=== PATIENT | female | born 1945 | race Caucasian/White ===

== ENCOUNTER 2018-03-07 10:16 | Outpatient (CLI) | payer MEDICARE ==
[2018-03-07] MEDS ORDERED: ISOVUE-370 76%-LOCM 1 ML ONE (11:38)
== END 2018-03-07 10:17 | disposition home or self-care (01) ==
LOC: BICCT 10:16
PROVIDERS: ATTEND General Practice
DX: R19.04 Left lower quadrant abdominal swelling, mass and lump (principal); K46.9 Unspecified abdominal hernia without obstruction or gangrene; I70.90 Unspecified atherosclerosis
CPT/HCPCS: 74177

== ENCOUNTER 2018-05-06 12:05 | Outpatient (CLI) | payer MEDICARE ==
[2018-05-06 13:08] LABS: #Basophils 0.1 thou/uL (0.0-0.2); #Eosinphils 0.5 thou/uL (0.0-0.7); #Lymphocytes 2.3 thou/uL (1.20-3.40); #Monocytes 0.7 thou/uL (0.11-0.59); #Neutrophils 5.1 thou/uL (1.40-6.50); %Basophils 0.9 % (0.0-1.0); %Eosinophils 5.5 % (0.0-10.0); %Lymphocytes 26.3 % (21.0-51.0); %Monocytes 8.2 % (0.0-10.0); %Neutrophils 59.1 % (42.0-75.0); Hemoglobin 14.4 g/dL (12.0-16.0); Mean Corpuscular HGB CONC 33.4 g/dL (32.0-36.0); Mean Corpuscular Hemoglobin 28.6 pg (27.0-31.0); Mean Corpuscular Volume 85.8 fl (81.0-99.0); Mean Platelet Volume 10.1 fL (7.4-10.4); Platelet Count 196 thou/uL (130-400); RBC Distribution Width 13.2 % (11.5-14.5); Red Blood Cell (RBC) Count 5.04 mill/uL (4.20-5.40); White Blood Cell (WBC) Count 8.7 thou/uL (4.8-10.8)
[2018-05-06 13:29] LABS: Anion Gap 13 mmol/L (10-20); BUN (Urea Nitrogen) 19 mg/dL (9.8-20.1); Calc. Creatinine Clearance 0 mL/min (70-130); Calcium 9.3 mg/dL (7.8-10.44); Carbon Dioxide 23 mmol/L (23-31); Chloride 108 mmol/L (98-107); Estimated GFR-MDRD 67; Glucose 92 mg/dL (83-110); Potassium 4.1 mmol/L (3.5-5.1); Sodium 140 mmol/L (136-145)
== END 2018-05-06 12:06 | disposition home or self-care (01) ==
LOC: LABBT 12:05
PROVIDERS: ATTEND Surgery
DX: Z01.812 Encounter for preprocedural laboratory examination (principal); K43.2 Incisional hernia without obstruction or gangrene
CPT/HCPCS: 80048; 85025

== ENCOUNTER 2018-05-07 06:06 | Day surgery (SDC) | payer MEDICARE ==
[2018-05-06 12:17] VITALS: BMI 38.6
[2018-05-07] MEDS ORDERED: Bupivacaine/Epinephrine 0.25% 30 ML VIAL ONE (06:34)
[2018-05-07] MEDS ORDERED: Fentanyl 250 MCG/5 ML VIAL ONE (06:41)
[2018-05-07] MEDS ORDERED: CEFAZOLIN/Water 2 GM/20 ML SYRINGE ONE (06:43)
[2018-05-07] MEDS ORDERED: SUGAMMADEX SODIUM 500 MG/5 ML VIAL ONE (09:32)
[2018-05-07] MEDS ORDERED: HYDROmorphone 0.5 MG/0.5 ML SYRINGE ONE ×3 (10:11→10:41)
[2018-05-07] MEDS ORDERED: Promethazine HCl 25 MG/ML VIAL ONE (10:38)
[2018-05-07] MEDS ORDERED: Morphine 4 MG/ML VIAL ONE (10:38)
[2018-05-07] MEDS ORDERED: PROPOFOL 200 MG/20 ML VIAL ONE (13:22)
[2018-05-07] MEDS ORDERED: Lidocaine 1% PF 5 ML VIAL ONE (13:22)
[2018-05-07] MEDS ORDERED: ePHEDrine/0.9% NaCl/PF SYRINGE 50 mg/10 ml ONE (13:22)
[2018-05-07] MEDS ORDERED: Ondansetron HCl/PF 4 MG/2 ML Vial ONE (13:22)
[2018-05-07] MEDS ORDERED: Glycopyrrolate 0.2 MG/ML 5 ML SYRINGE ONE (13:22)
[2018-05-07] MEDS ORDERED: Metoclopramide HCl 10 MG/2 ML VIAL ONE (13:22)
--- NOTE | 2018-05-08 15:05 | OP ---
DATE OF PROCEDURE: 05/07/2018 PREOPERATIVE DIAGNOSIS: Incisional hernia. POSTOPERATIVE DIAGNOSIS: Incisional hernia. PROCEDURE: Da [place] laparoscopic incisional hernia repair with mesh 10 x [address] TECHNIQUE: The patient was taken to the operating room and placed supine on operating room table. A fter general anesthetic was obtained, a Garcia was placed. The abdomen is prepped and draped in a kym rile fashion. Left subcostal 5-mm Optiview trocar was placed in the usual fashion and high flow pneu moperitoneum was obtained. Left and right midabdominal 8 mm robot ports were placed. The 5 mm port is switched out to an 11 mm balloon [employer] trocar. The robot was brought in through the lef t from the left foot in a parallel to bed fashion. All ports were docked to the robot. The patient had a fairly large lower abdominal midline incisional hernia. The peritoneum and all adhesions were taken down using sharp dissection. The fascial defects closed using running #1 V-Loc. A 10 x 14 cm mesh was brought in sterile field and the nonadherent side was marked, it is rolled and placed in the abdominal cavity. The needle from the V-Loc is used to hold it up and center it over the defect shanta t has been closed. 3-0 Stratafix was used to sew the mesh peripherally to the posterior fascia circu mferentially, this took three 3-0 Stratafix. All needles were removed from the abdomen and accounted for. There was no injury to any intraabdominal structures. There is no evidence of bleeding. The exposed mesh is placed posterior against the abdominal wall, but nonadherent is placed against the ab dominal viscera. All port sites were infiltrated using local anesthetic. All ports are removed unde r camera visualization. The pneumoperitoneum was let down. All incisions were irrigated and closed using 4-0 Monocryl and Dermabond. The patient en route to recovery in stable condition. All instrum ent counts, needle counts, lap counts were correct.
== END 2018-05-07 13:07 | disposition home or self-care (01) ==
LOC: SDC 06:06
PROVIDERS: ATTEND Surgery
PROC: 0WUF4JZ Supplement Abdominal Wall with Synthetic Substitute, Percutaneous Endoscopic Approach (ICD-10-PCS; principal; 2018-05-07)
DX: K43.2 Incisional hernia without obstruction or gangrene (principal); Z91.040 Latex allergy status
CPT/HCPCS: 49654; 93005; 96374 ×2; C1781; 93010; J1170; J2001; J2270; J2405; J2550; J2704; J2765; J3010

== ENCOUNTER 2020-10-29 10:49 | Inpatient (IN) | payer MEDICARE ==
[2020-10-29 12:02] LABS: #Eosinphils 0.1 thou/uL (0.0-0.7); #Lymphocytes 1.1 thou/uL (1.20-3.40); #Monocytes 0.6 thou/uL (0.11-0.59); #Neutrophils 6.3 thou/uL (1.40-6.50); %Basophils 0.4 % (0.0-1.0); %Eosinophils 1.3 % (0.0-10.0); %Lymphocytes 13.1 % (21.0-51.0); %Monocytes 7.3 % (0.0-10.0); %Neutrophils 77.9 % (42.0-75.0); Mean Corpuscular HGB CONC 32.4 g/dL (32.0-36.0); Mean Corpuscular Hemoglobin 28.9 pg (27.0-31.0); Mean Corpuscular Volume 89.1 fL (78.0-98.0); Platelet Count 238 thou/uL (130-400); White Blood Cell (WBC) Count 8.1 thou/uL (4.8-10.8)
[2020-10-29 12:24] LABS: ALT (SGPT) 356 U/L (8-55); AST (SGOT) 334 U/L (5-34); Albumin 3.7 g/dL (3.4-4.8); Alkaline Phosphatase 364 U/L (40-110); Anion Gap 17 mmol/L (10-20); BUN (Urea Nitrogen) 20 mg/dL (9.8-20.1); Bilirubin, Total 4.8 mg/dL (0.2-1.2); Calc. Creatinine Clearance 0 mL/min (70-130); Calcium 9.5 mg/dL (7.8-10.44); Carbon Dioxide 24 mmol/L (23-31); Chloride 104 mmol/L (98-107); Globulin 3.9 g/dL (2.4-3.5); Glucose 106 mg/dL (83-110); Lipase 28 U/L (8-78); Protein, Total 7.6 g/dL (6.0-8.3); Sodium 141 mmol/L (136-145)
[2020-10-29] MEDS ORDERED: Iopamidol-370 76% 500 ML 1 ML ONE (13:22)
[2020-10-29] MEDS ORDERED: Ondansetron PF 4 MG/2 ML Vial ONE (15:03)
[2020-10-29] MEDS ORDERED: Sucralfate 1 GM/10 ML UDCUP ONE (15:04)
--- NOTE | 2020-10-29 15:15 | CT ---
CT OF THE ABDOMEN AND PELVIS WITH IV CONTRAST INDICATION: 74-year-old female with history of vomiting COMPARISON: Prior exam dated March 07, 2018 FINDINGS: ABDOMEN: Lung bases: Clear Liver: There is prominent intrahepatic biliary ductal dilatation. There is a stable 1.3 center left h epatic lobe cyst. Gallbladder: Surgically absent. The common bile duct is dilated measuring 1.7 cm. There is radiopaqu e debris within the distal common bile duct likely related to sludge and small stones on image 40 of series 2. Pancreas: There is very mild dilatation of the main pancreatic duct. There is no overt CT evidence of acute pancreatitis. Adrenal glands: Normal. Spleen: Calcified granuloma Kidneys and ureters: There are multiple bilateral peripelvic cysts affecting both kidneys. No definit e solid renal lesion or hydronephrosis is evident. Vasculature: There are moderate vascular calcifications seen involving the visualized vasculature. Lymph nodes:No lymphadenopathy. Free fluid in abdomen:No free fluid is evident. PELVIS: Small and large bowel: There is colonic diverticulosis without evidence of active diverticulitis. Sma ll bowel is of normal caliber. Visualized aspects of the stomach appear within normal limits. There is a small fat-containing umbilicus hernia. Appendix:Not definitely seen Bladder: Partially visualized due to respiratory artifact from the patient's bilateral total hip arth roplasties. Rectal and perirectal soft tissues:Normal. Reproductive structures: Surgically absent Free fluid in pelvis: No free fluid is evident. Lymphadenopathy pelvis: No lymphadenopathy is evident. Osseous structures: No acute osseous abnormality. No destructive osteolytic or osteoblastic lesion i s identified. There is scattered degenerative and osteoarthritic changes. Soft tissues:Normal. IMPRESSION: 1. Prominent intrahepatic and extrahepatic biliary ductal dilatation with gallbladder sludge and smal l stones seen involving the distal common bile duct near the ampulla. There is also very mild dilatation of the main pancreatic duct. There is no overt CT evidence to suggest presence of acute pa ncreatitis. Gastroenterology consultation is recommended. 2. Cholecystectomy. 3. Findings of prior granulomatous disease. 4. Bilateral peripelvic renal cysts. Left hepatic lobe cyst. 5. Colonic diverticulosis.
[2020-10-29 15:44] LABS: HBCM Index 0.08 S/CO (0-0.79); HBSAg Index 0.18 S/CO (0-0.99); Hep A IgM AB Non-Reactive (NonReactive); Hep A IgM S/CO 0.37 S/CO (0-0.79); Hep B Surf Ag Non-Reactive S/CO (NonReactive); Hep C IgG Ab Non-Reactive (NonReactive); Hep C Index 0.09 S/CO (0-0.79); Hepatitis B Core IgM Abs Non-Reactive (NonReactive)
--- NOTE | 2020-10-29 16:01 | ULT ---
RIGHT UPPER QUADRANT ULTRASOUND CLINICAL HISTORY: History of vomiting. COMPARISON: CT the abdomen and pelvis dated October 29, 2020 at 3:03 PM FINDINGS: Overlying bowel gas and patient body habitus heavily limit image detail. Liver:There is intrahepatic biliary ductal dilatation. No focal hepatic lesion is evident. Intrahepatic bile ducts: There is intrahepatic biliary duct dilatation.; Common bile duct: Recorded by the security technician as 2.5 mm; however, the bile duct is grossly dilated o n the CT evaluation. Common bile but is not well seen on the current exam.. Gallbladder: Surgically absent Tomas's sign:Not reported Main portal vein:Patent with hepatopedal flow. Pancreas:Obscured Right kidney: Right kidney measures 11.1 x 4.6 x 5.1 cm. No focal renal lesion or hydronephrosis. Additional findings: None. IMPRESSION: Limited exam due to patient's body habitus and overlying bowel gas. Cholecystectomy. Intrahepatic biliary ductal dilatation. Common bile duct is grossly dilated on the CT evaluation but not well seen on the current ultrasound exam. Recommendations remain the same as per the CT evaluation.
[2020-10-29 16:15] LABS: Bilirubin 1+ (Negative); Blood, Urine Trace (Negative); Clarity Clear (Clear); Glucose, Urine (Dipstick) Normal (Negative); Ketone, Urine 10 mg/dL (Negative); Leukocyte 500 Leu/uL (Negative); Nitrite 1+ (Negative); Protein, Urine (Dipstick) 10 mg/dL (Neg-Trace); WBC/HPF Greater than 50 HPF (0-3); pH, Urine 5.5 (5.0-9.0)
[2020-10-29 16:17] LABS: Specific Gravity, Urine 1.055 (1.002-1.036)
[2020-10-29 16:22] LABS: Bacteria/HPF 3+ HPF (None Seen)
[2020-10-29] MEDS ORDERED: Acetaminophen 325 MG TAB PO PRN (17:38)
[2020-10-29] MEDS ORDERED: cefTRIAXone\\ROCEPHIN 2 GM VIAL ONE (17:39)
[2020-10-29] MEDS ORDERED: Sodium Chloride 0.9% 100 ML ONE (17:40)
[2020-10-29] MEDS ORDERED: Melatonin 3 MG TAB PO PRN (17:48)
[2020-10-29] MEDS ORDERED: Ondansetron PF 4 MG/2 ML Vial IVP PRN (18:51)
--- NOTE | 2020-10-29 19:05 | CON ---
DATE OF CONSULTATION: 10/29/2020 REASON FOR CONSULTATION: Choledocholithiasis. CONSULTING PROVIDER: JOSHUA Mccormack HISTORY OF PRESENT ILLNESS: The patient is a 74-year-old female with past medical history of hypertension, osteoarthritis/degenerative joint disease, presenting with complaints of nausea, vomiting, and abdominal pain. She states that she was in her usual state of health until approximately 1 week ago when she began having increased nausea, vomiting, characterized as having 1 to 2 discrete episodes of nonbloody emesis per day that was worse with eating or drinking any particular foodstuffs (no specific food triggers) and vomiting within 30 minutes of ingestion. With this increased nausea and vomiting, it made it very difficult for her to maintain adequate nutrition and over the course of the next few days, she began to develop increased mid to lower back pain in addition to generalized abdominal discomfort over the last 3 days. However, in terms of her abdominal discomfort, it is not significantly increased in terms of severity. It is intermittent and occurs primarily only with the nausea and vomiting episodes. During the same time period, she endorsed having approximately one solid bowel movement every 2 to 3 days with increased straining in order to facilitate defecation. Otherwise, she endorsed subjective fevers, chills, an orange color to her urine, and possible yellowing of her skin. Otherwise, she denies any hematemesis, melena, hematochezia, dysphagia, odynophagia, diarrhea, or weight loss. With the increased nausea and vomiting, relative intolerance to p.o., we then prompted her to seek healthcare assistance at [facility] ER. While in the ER, she was noted to have significantly elevated LFTs in an obstructive-type pattern in addition to imaging findings consistent with choledocholithiasis. Ultimately, she will be admitted to the hospital for further evaluation and ERCP tomorrow. Of note, the patient was admitted to the hospital in 2011 with increased nausea, vomiting, abdominal pain at that time. She was ultimately diagnosed with acute cholecystitis with cholecystectomy performed at that time, but an ERCP was attempted on June 28, 2012, but unfortunately during the course of the procedure, the ampulla was unable to be cannulated. REVIEW OF SYSTEMS: A 10-category review of systems was obtained with all responses negative except for the pertinent positives as listed in HPI. PAST MEDICAL HISTORY: As per HPI. PAST SURGICAL HISTORY: Bilateral hip replacement, cholecystectomy, hysterectomy with oophorectomy. SOCIAL HISTORY: Denies any tobacco, alcohol, or illicit drug use. OUTPATIENT MEDICATIONS: Tylenol p.r.n. ALLERGIES: ADHESIVE TAPE. PHYSICAL EXAMINATION: VITAL SIGNS: Heart rate 74, blood pressure 191/65, respiratory rate 16, saturating 93% on room air. GENERAL: The patient was lying in bed, in no acute distress. Alert and oriented x4. HEENT: Normocephalic, atraumatic. Positive scleral icterus. NECK: Supple. No JVD noted. CARDIOVASCULAR: Regular rate and rhythm with no discernible murmurs, gallops, or rubs. RESPIRATORY: Clear to auscultation bilaterally with no discernible wheezes or rales. ABDOMEN: Normoactive bowel sounds. Soft, nontender, and nondistended. EXTREMITIES: No cyanosis, clubbing, or edema. LABORATORY DATA: CBC with a white blood cell count of 8.1, hemoglobin 15, hematocrit 46.3, platelets 238. Chemistry with a sodium of 141, potassium 4.0, chloride 104, CO2 of 24, BUN 20, creatinine 0.91, glucose 106, AST 334, ALT 356, alkaline phosphatase 364, total bilirubin 4.8, direct bilirubin 3.1, albumin 3.7, lipase 28. Urinalysis was consistent with a contaminated sample. Acute hepatitis panel was negative for hepatitis A, B, and C. IMAGING DATA: CT scan of the abdomen/pelvis was obtained on October 29, 2020, which showed prominent intrahepatic dilatation in addition to dilation of the common bile duct to 17 mm with debris in the distal common bile duct. Mild dilatation of the main pancreatic duct was also seen without evidence of pancreatitis. Multiple bilateral renal cysts were seen along with colonic diverticulosis without evidence of diverticulitis. A right upper quadrant ultrasound was also obtained on October 29, 2020, which showed intrahepatic biliary ductal dilatation with the common bile duct measured at 2.5 mm per the neon technician read, but the bile duct is grossly dilated on the CT scan. The gallbladder was noted to be surgically absent with normal flow through the main portal vein. ASSESSMENT AND PLAN: The patient is a 74-year-old female with past medical history of hypertension, osteoarthritis/degenerative joint disease, presenting with probable choledocholithiasis. Choledocholithiasis: The patient is presenting with acute onset of nausea, vomiting, lower back pain, and mild abdominal discomfort with elevated LFTs in an obstructive-type pattern and CT scan showing dilation of the common bile duct with debris in the distal common portion of it concerning for choledocholithiasis. On chart review, the patient was admitted to the hospital in June 2012 with similar symptoms (albeit more severe) with a cholecystectomy performed at that time. Endoscopic retrograde cholangiopancreatography with attempted, but cannulation of the ampulla could not be achieved and the patient had downtrending her enzymes over the next few days, raising the possibility of a passed gallstone within the common bile duct. At this time given the higher likelihood of choledocholithiasis, the patient will need broader spectrum antibiotics to cover gram negatives and anaerobes in addition to more emergent endoscopic retrograde cholangiopancreatography. RECOMMENDATIONS: 1. Would place the patient on a clear liquid diet tonight with plans make her n.p.o. at midnight in anticipation of ERCP tomorrow. 2. Would place the patient on Zosyn for broader coverage of prevention of ascending cholangitis. 3. Pain control per primary team. 4. Would pursue aggressive antiemetic therapy with Zofran 4 mg t.i.d. as needed. 5. Would avoid any anticoagulation in anticipation of the ERCP tomorrow. Further recommendations to follow ERCP. We will continue to follow. Please call with any questions. Job ID: [id number]
--- NOTE | 2020-10-29 19:17 | PDOC.HHP ---
Hospitalist HPI - History of Present Illness Nausea and vomiting x1 week History of Present Illness: 74F presents to the ED for evaluation of weakness, n/v and inability to hold down fluids or solid foods for the last week. She reports eating a lezama sandwich last before the nausea/vomiting started. She denies significant abdominal pain. She does report some mid back pain. She denies diarrhea, reports a BM every couple of days but decreased due to lack of nutrition. Denies melena, reports some subjective fever, chills at home. She was given Zofran in the ED which helped her nausea. She reports having her gallbladder removed in 2011. ED Course: Elevated LFTs with AST 334, ALT 356, Alk Phos, 364, bili 4.8. Acute hepatitis panel was negative. CT abdomen/pelvis shows dilitation of CBD with 17mm of debris and no evidence of pancreatitis. ED called GI income tax consultant student union consultant who asked for patient to be admitted and will consult for possible ERCP. Hospitalist ROS - Review of Systems Constitutional: reports: fever, chills Eyes: reports: other ENT: denies: ear pain, ear discharge, nose pain, nose discharge, nose congestion, mouth pain, mouth swelling, throat pain, throat swelling, other Respiratory: denies: cough, dry, shortness of breath, hemoptysis, SOB with excertion, pleuritic pain, sputum, wheezing, other Cardiovascular: denies: chest pain, palpitations, orthopnea, paroxysmal noc. dyspnea, edema, light headedness, other Gastrointestinal: reports: nausea, vomiting Genitourinary: reports: other Musculoskeletal: denies: neck pain, shoulder pain, arm pain, back pain, hand pain, leg pain, foot pain, other Skin: denies: rash, lesions, nikolai, bruising, other Neurological: reports: weakness (generalized due to n/v) - Medication Medications: Tylenol 500mg po q6h prn knee pain Hospitalist History - Past Medical History Cardiac: reports: no pertinent history Gastrointestinal: reports: Other Musculoskeletal: reports: Other (right knee pain, intermittent) - Past Surgical History Past Surgical History: reports: Cholecystectomy, Hernia Repair, Total Hip Replacement - Family History Family History: reports: hypertension - Social History Smoking Status: Unknown if ever smoked Alcohol: reports: None Drugs: reports: none Living Situation: With Family Activity level: independent ambulation - Exam General Appearance: awake alert Eye: scleral icterus ENT: normocephalic atraumatic, dry oral mucosa Neck: supple, no JVD Heart: RRR, normal peripheral pulses Respiratory: CTAB Gastrointestinal: soft, non-tender Extremities: no cyanosis Skin: normal turgor Neurological: cranial nerve grossly intact Musculoskeletal: normal tone Psychiatric: normal affect, A&O x 3 Hospitalist Results - Labs Result Diagrams: 10/29/20 11:44 10/29/20 11:44 Lab results: WBC 8.1 thou/uL (4.8-10.8) 10/29/20 11:44 Hgb 15.0 g/dL (12.0-16.0) 10/29/20 11:44 Hct 46.3 % (36.0-47.0) 10/29/20 11:44 MCV 89.1 fL (78.0-98.0) 10/29/20 11:44 Plt Count 238 thou/uL (130-400) 10/29/20 11:44 Neutrophils % 77.9 % (42.0-75.0) H 10/29/20 11:44 Sodium 141 mmol/L (136-145) 10/29/20 11:44 Potassium 4.0 mmol/L (3.5-5.1) 10/29/20 11:44 Chloride 104 mmol/L (98-107) 10/29/20 11:44 Carbon Dioxide 24 mmol/L (23-31) 10/29/20 11:44 BUN 20 mg/dL (9.8-20.1) 10/29/20 11:44 Creatinine 0.91 mg/dL (0.6-1.1) 10/29/20 11:44 Glucose 106 mg/dL (83-110) 10/29/20 11:44 Lactic Acid 1.3 mmol/L (0.5-2.2) 10/29/20 14:44 Calcium 9.5 mg/dL (7.8-10.44) 10/29/20 11:44 Total Bilirubin 4.8 mg/dL (0.2-1.2) H 10/29/20 11:44 AST 334 U/L (5-34) H 10/29/20 11:44 ALT 356 U/L (8-55) H 10/29/20 11:44 Alkaline Phosphatase 364 U/L (40-110) H 10/29/20 11:44 Serum Total Protein 7.6 g/dL (6.0-8.3) 10/29/20 11:44 Albumin 3.7 g/dL (3.4-4.8) 10/29/20 11:44 Lipase 28 U/L (8-78) 10/29/20 11:44 Urine Ketones 10 mg/dL (Negative) A 10/29/20 15:59 Urine Blood Trace (Negative) A 10/29/20 15:59 Urine Nitrite 1+ (Negative) A 10/29/20 15:59 Ur Leukocyte Esterase 500 Hugo/uL (Negative) A 10/29/20 15:59 Urine RBC 11-20 HPF (0-3) A 10/29/20 15:59 Urine WBC Greater than 50 HPF (0-3) A 10/29/20 15:59 Ur Squamous Epith Cells 11-20 HPF (0-3) A 10/29/20 15:59 Urine Bacteria 3+ HPF (None Seen) A 10/29/20 15:59 Hospitalist H&P A/P - Problem (1) Nausea & vomiting Code(s): R11.2 - NAUSEA WITH VOMITING, UNSPECIFIED Status: Acute Assessment and Plan: Zofran, IV fluids, NPO (2) Cholestatic jaundice Code(s): R17 - UNSPECIFIED JAUNDICE Status: Acute Assessment and Plan: GI consult, recheck labs in AM (3) Common bile duct (CBD) obstruction Code(s): K83.1 - OBSTRUCTION OF BILE DUCT Status: Acute Assessment and Plan: See above (4) UTI (urinary tract infection) Status: Acute Assessment and Plan: UC ordered, Rocephin in ED; changed per Dr. Montejo recommendation to Zosyn for cross coverage for cholangitis - Plan Plan: GI consult for possible ERCP in AM Zofran as needed for nausea/vomiting; Protonix IVP daily;Fentanyl as needed for pain meds UTI. Zosyn 3.375gm Q6h to cover UTI and prevention of cholangitis Lovenox for DVT prevention Case discussed with Dr. Matias
[2020-10-29] MEDS ORDERED: Fentanyl 100 MCG/2 ML VIAL SLOW IVP PRN (20:04)
[2020-10-29 20:06] VITALS: BMI 36.8
[2020-10-29] MEDS: Piperacillin/Tazobactam 3.375 GM in Sodium Chloride 0.9% 100 ML IVPB SCH (20:17)
[2020-10-29] MEDS: Sodium Chloride 0.9% 1,000 ML IV SCH (20:17)
[2020-10-30] MEDS: Piperacillin/Tazobactam 3.375 GM in Sodium Chloride 0.9% 100 ML IVPB SCH ×4 (03:13→20:40)
[2020-10-30 06:02] LABS: #Basophils 0.1 thou/uL (0.0-0.2); #Eosinphils 0.4 thou/uL (0.0-0.7); #Lymphocytes 2.2 thou/uL (1.20-3.40); #Monocytes 0.9 thou/uL (0.11-0.59); #Neutrophils 6.2 thou/uL (1.40-6.50); %Basophils 0.9 % (0.0-1.0); %Eosinophils 3.6 % (0.0-10.0); %Lymphocytes 22.9 % (21.0-51.0); %Neutrophils 63.6 % (42.0-75.0); Hemoglobin 14.8 g/dL (12.0-16.0); Mean Corpuscular HGB CONC 33.4 g/dL (32.0-36.0); Mean Platelet Volume 10.9 fL (7.4-10.4); Platelet Count 229 thou/uL (130-400); RBC Distribution Width 13.2 % (11.5-14.5); Red Blood Cell (RBC) Count 4.92 mill/uL (4.20-5.40); White Blood Cell (WBC) Count 9.8 thou/uL (4.8-10.8)
[2020-10-30] MEDS: Sodium Chloride 0.9% 1,000 ML IV SCH ×2 (06:05→20:42)
[2020-10-30 06:27] LABS: ALT (SGPT) 365 U/L (8-55); AST (SGOT) 276 U/L (5-34); Albumin 3.4 g/dL (3.4-4.8); Alkaline Phosphatase 319 U/L (40-110); Anion Gap 17 mmol/L (10-20); BUN (Urea Nitrogen) 18 mg/dL (9.8-20.1); Bilirubin, Total 2.4 mg/dL (0.2-1.2); Calc. Creatinine Clearance 76 mL/min (70-130); Calcium 8.9 mg/dL (7.8-10.44); Carbon Dioxide 23 mmol/L (23-31); Chloride 108 mmol/L (98-107); Globulin 3.6 g/dL (2.4-3.5); Glucose 88 mg/dL (83-110); Potassium 4.1 mmol/L (3.5-5.1); Sodium 144 mmol/L (136-145)
[2020-10-30 06:47] LABS: SARS-CoV-2 MS2 Positive; SARS-CoV-2 N Gene Negative; SARS-CoV-2 S Gene Negative; SARS-CoV-2 by NAA Not Detected (NotDetected); SARS-CoV-2 orf1ab Negative
[2020-10-30] MEDS ORDERED: Piperacillin/Tazobactam 3.375 GM VIAL ONE (08:44)
[2020-10-30] MEDS ORDERED: Enoxaparin Sodium 40 MG/0.4 ML SYRINGE SC SCH (09:00)
[2020-10-30] MEDS: Pantoprazole 40 MG VIAL IVP SCH (09:10)
[2020-10-30] MEDS ORDERED: Indomethacin 50 MG SUPP ONE (11:08)
[2020-10-30] MEDS ORDERED: Iothalamate Meglumine 60% 50 ML VIAL FS ONE (11:10)
[2020-10-30] MEDS ORDERED: Fentanyl 100 MCG/2 ML VIAL ONE (11:23)
[2020-10-30] MEDS ORDERED: SUGAMMADEX SODIUM 200 MG/2 ML VIAL ONE (11:23)
[2020-10-30] MEDS ORDERED: Ketorolac Tromethamine 30 MG/ML VIAL ONE (11:25)
[2020-10-30] MEDS ORDERED: Rocuronium Bromide 10 MG/ML (10ML VIAL) ONE (11:25)
[2020-10-30] MEDS ORDERED: Lidocaine 1% PF 5 ML VIAL ONE (11:25)
[2020-10-30] MEDS ORDERED: Dexamethasone 20 MG/5 ML VIAL ONE (11:25)
[2020-10-30] MEDS ORDERED: PROPOFOL 200 MG/20 ML VIAL ONE (11:25)
[2020-10-30] MEDS ORDERED: Ondansetron PF 4 MG/2 ML Vial ONE (11:25)
[2020-10-30] MEDS ORDERED: Promethazine HCl 25 MG/ML VIAL SLOW IVP PRN (12:06)
[2020-10-30] MEDS ORDERED: Ondansetron HCl/PF 4 MG/2 ML Vial IVP PRN (12:06)
[2020-10-30] MEDS ORDERED: Promethazine HCl 25 MG/ML VIAL IM PRN (12:06)
--- NOTE | 2020-10-30 13:43 | RAD ---
ERCP: 10/30/20 COMPARISON: CT abdomen/pelvis 10/28/20. HISTORY: Enlarged common bile duct and choledocholithiasis. FINDINGS/IMPRESSION: Multiple limited intraoperative fluoroscopic views from an ERCP were submitted for interpretation. T here is enlargement of the common bile duct. There are two apparent fulling defects within the common bile duct. These are not see on the last image. There is central intrahepatic biliary dilatation. POS: EAA
[2020-10-30] MEDS ORDERED: Promethazine HCl 25 MG/ML VIAL ONE (13:55)
--- NOTE | 2020-10-30 14:46 | PDOC.HOSPP ---
- Subjective Encounter Date: 10/30/20 Encounter Time: 09:30 Subjective: no abd pain or nausea, is npo for ercp today - Objective Vital Signs & Weight: Vital Signs (12 hours) Temp Pulse Resp BP Pulse Ox 10/30/20 08:00 94 L 10/30/20 07:32 98.2 F 60 18 175/74 H 94 L 10/30/20 03:55 97.9 F 58 L 18 137/73 93 L Weight Admit Weight 221 lb Weight 221 lb I&O: 10/29/20 10/30/20 10/31/20 06:59 06:59 06:59 Intake Total 800 Balance 800 Result Diagrams: 10/30/20 05:46 10/30/20 05:46 Hospitalist ROS - Medication Medications: Active Medications Generic Name Dose Route Start Last Admin Trade Name Freq PRN Reason Stop Dose Admin Sodium Chloride 1,000 mls @ 75 mls/hr 10/29/20 17:45 10/30/20 06:05 Normal Saline 0.9% IV Not Given .[id number] TOSHA Piperacillin Sod/Tazobactam 100 mls @ 200 mls/hr 10/29/20 21:00 10/30/20 09:11 Sod 3.375 gm/ Sodium Chloride IVPB Not Given 0300,0900,1500,2100 TOSHA Pantoprazole Sodium 40 mg 10/30/20 09:00 10/30/20 09:10 Pantoprazole 40 Mg Vial IVP 40 mg DAILY TOSHA Administration - Exam General Appearance: awake alert Eye: scleral icterus ENT: no oropharyngeal lesions, dry oral mucosa Neck: supple, no JVD Heart: RRR, no murmur Respiratory: no wheezes, no rales, no ronchi Gastrointestinal: soft, non-tender, non-distended, normal bowel sounds Extremities: no cyanosis, no edema Neurological: cranial nerve grossly intact, no focal deficits Psychiatric: normal affect, A&O x 3 Hosp A/P (1) Choledocholithiasis Code(s): K80.50 - CALCULUS OF BILE DUCT W/O CHOLANGITIS OR CHOLECYST W/O OBST Status: Acute (2) HTN (hypertension) Code(s): I10 - ESSENTIAL (PRIMARY) HYPERTENSION Status: Acute Qualifiers: Hypertension type: essential hypertension Qualified Code(s): I10 - Essential (primary) hypertension (3) Obesity (BMI 30-39.9) Code(s): E66.9 - OBESITY, UNSPECIFIED Status: Chronic (4) Cholestatic jaundice Code(s): R17 - UNSPECIFIED JAUNDICE Status: Acute (5) Nausea & vomiting Code(s): R11.2 - NAUSEA WITH VOMITING, UNSPECIFIED Status: Resolved Qualifiers: Vomiting type: unspecified - Plan for ercp today, has prior cholecystectomy empiric zosyn, iv fluids will add norvasc and low dose lopressor for now hemostable to mobilize as tolerated post procedure
[2020-10-30] MEDS ORDERED: Metoprolol Tartrate 25 MG TAB PO SCH (15:00)
[2020-10-30] MEDS ORDERED: Amlodipine 10 MG TAB PO SCH (15:00)
--- NOTE | 2020-10-30 15:34 | OP ---
DATE OF PROCEDURE: 10/30/2020 PROCEDURE PERFORMED: Endoscopic retrograde cholangiopancreatography with sphincterotomy and removal of biliary calculi. INDICATIONS FOR PROCEDURE: Choledocholithiasis, elevated LFTs. DESCRIPTION OF PROCEDURE: After the risks and benefits of the procedure were explained to the patient including risks of bleeding, infection, perforation, reactions to anesthesia, aspiration, post ERCP pancreatitis, and/or pain, informed consent was obtained. The patient was then taken to the endoscopy suite, where general anesthesia was administered followed by endotracheal tube intubation. Once the patient was adequately sedated and intubated, she was maneuvered into the prone position in anticipation of the ERCP. Once in adequate position and with proper placement of a fluoroscopy tube, the standard duodenoscope was introduced into the mouth with intubation of the esophagus, stomach, and proximal small intestines with the findings listed below. The patient tolerated the procedure well with no immediate perioperative complications. On conclusion of the procedure, all equipment was removed from the patient and she was transferred to PACU in satisfactory condition. EGD FINDINGS: Limited views were obtained during the EGD portion at the end of this examination, given the side-viewing aspect of the duodenoscope. Of the views obtained, normal-appearing mucosa was seen in the proximal, mid, and distal esophagus. Normal mucosa was also seen in the gastroesophageal junction, gastric cardia, fundus, body, greater curvature, and antrum. Normal-appearing mucosa was also seen in the duodenal bulb. However, 2 larger duodenal diverticula were seen in the second portion of the duodenum measuring approximately 2 to 3 cm in diameter with the ampulla of Vater located along the edge/lip of one of these diverticula. ERCP FINDINGS: The ampulla was identified with some difficulty as being inserted on to the edge/lip of one of the duodenal diverticula seen in the second portion of the duodenum. After successful identification, the ampulla was then successfully cannulated with a 5-mm Ultratome sphincterotome, at which point, a guidewire was then placed into the intrahepatic biliary tree. Using the guidewire, the sphincterotome was then advanced into the distal common bile duct with a cholangiogram performed at that time. The initial cholangiogram showed dilation of the proximal common bile duct/common hepatic duct to approximately 15 to 20 mm in diameter with multiple filling defects seen in the common hepatic/proximal common bile duct. The distal common bile duct was not able to be adequately visualized at least initially with lack of contrast flowing to that area. Given the presence of the multiple filling defects and stone debris seen on CT scan, a generous sphincterotomy was then performed with good hemostasis achieved (although some bleeding was noted during this portion of the procedure). Once the sphincterotomy was performed, the sphincterotome was then exchanged for a 12 to 15 mm biliary balloon, which was then successfully advanced into the extrahepatic biliary tree. Using successive balloon sweeps, a large amount of yellow stone debris/sludge was obtained from the distal common bile duct. Three additional filling defects were seen, that were translated into 3 yellow pigmented stones measuring approximately 5 mm, 10 mm, and 15 mm in size. After removal of all the stone debris and the large stones themselves, an occlusion cholangiogram was then performed with good filling of both the intrahepatic and extrahepatic biliary tree. The balloon was then deflated with good drainage of bile noted into the second portion of the duodenum. At that time, the procedure was terminated and all equipment was removed from the patient with transferring the patient to PACU in satisfactory condition. IMPRESSION: 1. Choledocholithiasis consisting of 3 large yellow pigmented stones in addition to a large amount of retained stone debris seen in both the common hepatic and distal common bile ducts; now successfully extracted via biliary balloon sweeps. 2. Significant dilation of the common hepatic duct to 15 to 20 mm in diameter. RECOMMENDATIONS: 1. Would monitor the patient in the postoperative setting for possible post ERCP pancreatitis. 2. Would start the patient on a full liquid diet and advance as tolerated. 3. Pain control per primary team. 4. Would continue IV antibiotics in the postoperative setting. 5. Would continue to trend the patient's LFTs tomorrow for evaluation of response to treatment. We will continue to follow. Please call with any questions. Job ID: [id number]
[2020-10-30] MEDS ORDERED: cefTRIAXone\\ROCEPHIN 1 GM in Sodium Chloride 0.9% 100 ML IVPB SCH (18:00)
[2020-10-30] MEDS: Metoprolol Tartrate 25 MG TAB PO SCH (20:38)
[2020-10-31] MEDS: Piperacillin/Tazobactam 3.375 GM in Sodium Chloride 0.9% 100 ML IVPB SCH ×4 (02:54→19:39)
[2020-10-31] MEDS: Amlodipine 10 MG TAB PO SCH (07:58)
[2020-10-31] MEDS: Pantoprazole 40 MG VIAL IVP SCH (07:59)
[2020-10-31] MEDS: Metoprolol Tartrate 25 MG TAB PO SCH (10:17)
[2020-10-31 10:49] LABS: #Basophils 0.1 thou/uL (0.0-0.2); #Eosinphils 0.5 thou/uL (0.0-0.7); #Lymphocytes 1.1 thou/uL (1.20-3.40); #Monocytes 0.5 thou/uL (0.11-0.59); %Basophils 1.4 % (0.0-1.0); %Eosinophils 7.9 % (0.0-10.0); %Lymphocytes 17.4 % (21.0-51.0); %Monocytes 8.3 % (0.0-10.0); %Neutrophils 65.1 % (42.0-75.0); Hemoglobin 12.6 g/dL (12.0-16.0); Mean Corpuscular HGB CONC 31.7 g/dL (32.0-36.0); Mean Corpuscular Hemoglobin 28.6 pg (27.0-31.0); Mean Corpuscular Volume 89.9 fL (78.0-98.0); Platelet Count 203 thou/uL (130-400); RBC Distribution Width 13.1 % (11.5-14.5); Red Blood Cell (RBC) Count 4.41 mill/uL (4.20-5.40); White Blood Cell (WBC) Count 6.1 thou/uL (4.8-10.8)
[2020-10-31 11:07] LABS: ALT (SGPT) 240 U/L (8-55); AST (SGOT) 128 U/L (5-34); Albumin 2.8 g/dL (3.4-4.8); Alkaline Phosphatase 210 U/L (40-110); Anion Gap 15 mmol/L (10-20); BUN (Urea Nitrogen) 15 mg/dL (9.8-20.1); Bilirubin, Total 1.5 mg/dL (0.2-1.2); Calc. Creatinine Clearance 71 mL/min (70-130); Calcium 8.1 mg/dL (7.8-10.44); Carbon Dioxide 22 mmol/L (23-31); Chloride 111 mmol/L (98-107); Glucose 147 mg/dL (83-110); Potassium 3.4 mmol/L (3.5-5.1); Protein, Total 5.8 g/dL (6.0-8.3); Sodium 145 mmol/L (136-145)
[2020-10-31] MEDS: Sodium Chloride 0.9% 1,000 ML IV SCH (12:17)
--- NOTE | 2020-10-31 12:49 | PDOC.HOSPP ---
- Subjective Encounter Date: 10/31/20 Encounter Time: 10:15 Subjective: no abd pain or nausea had one episode of black stool this am is tolerating liq diet - Objective Vital Signs & Weight: Vital Signs (12 hours) Temp Pulse Resp BP BP Pulse Ox 10/31/20 12:00 97.9 F 68 16 112/62 97 10/31/20 08:00 95 10/31/20 07:58 80 137/77 Weight Admit Weight 221 lb Weight 221 lb I&O: 10/30/20 10/31/20 11/01/20 06:59 06:59 06:59 Intake Total 800 Balance 800 Result Diagrams: 10/31/20 10:09 10/31/20 10:09 Hospitalist ROS - Medication Medications: Active Medications Generic Name Dose Route Start Last Admin Trade Name Freq PRN Reason Stop Dose Admin Amlodipine Besylate 10 mg 10/31/20 09:00 10/31/20 07:58 Amlodipine 10 Mg Tab PO 10 mg DAILY TOSHA Administration Sodium Chloride 1,000 mls @ 75 mls/hr 10/29/20 17:45 10/31/20 12:17 Normal Saline 0.9% IV 1,000 mls .[id number] TOSHA Administration Piperacillin Sod/Tazobactam 100 mls @ 200 mls/hr 10/29/20 21:00 10/31/20 08:00 Sod 3.375 gm/ Sodium Chloride IVPB 100 mls 0300,0900,1500,2100 TOSHA Administration Pantoprazole Sodium 40 mg 10/31/20 09:00 10/31/20 08:13 Pantoprazole 40 Mg Tab PO Not Given DAILY TOSHA - Exam General Appearance: awake alert Eye: PERRL, anicteric sclera ENT: no oropharyngeal lesions, moist mucosa Neck: supple, no JVD Heart: RRR, no murmur Respiratory: no wheezes, no rales Gastrointestinal: soft, non-tender, non-distended, normal bowel sounds Extremities: no cyanosis, no edema Neurological: cranial nerve grossly intact, no focal deficits Psychiatric: normal affect, A&O x 3 Hosp A/P (1) Choledocholithiasis Code(s): K80.50 - CALCULUS OF BILE DUCT W/O CHOLANGITIS OR CHOLECYST W/O OBST Status: Acute (2) HTN (hypertension) Code(s): I10 - ESSENTIAL (PRIMARY) HYPERTENSION Status: Acute Qualifiers: Hypertension type: essential hypertension Qualified Code(s): I10 - Essential (primary) hypertension (3) Obesity (BMI 30-39.9) Code(s): E66.9 - OBESITY, UNSPECIFIED Status: Chronic (4) Cholestatic jaundice Code(s): R17 - UNSPECIFIED JAUNDICE Status: Resolved (5) Nausea & vomiting Code(s): R11.2 - NAUSEA WITH VOMITING, UNSPECIFIED Status: Resolved Qualifiers: Vomiting type: unspecified - Plan s/p ercp with extraction of cbd stones, prior cholecystectomy, LFT's are trending down H/H q8h, continue full liq diet, may switch to solid diet if Hb remains >12g on the 2nd H/H empiric zosyn, iv fluids, norvasc hemostable to mobilize as tolerated, PT eval, may need HH with PT on discharge
[2020-10-31 13:18] LABS: Hemoglobin 12.7 g/dL (12.0-16.0)
--- NOTE | 2020-10-31 17:47 | PRG ---
DATE OF SERVICE: 10/31/2020 REASON FOR CONSULTATION: Choledocholithiasis. SUBJECTIVE: The patient underwent ERCP yesterday with the findings of multiple stones within the common bile duct in addition to a significant amount of stone debris and sludge. This was successfully extricated from her common hepatic and common bile duct, and in the postoperative setting, the patient has had no further increase in her abdominal pain, but did have one episode of a darker colored stool last night/this morning. Upon conferring with the patient's nurse who had taken a picture of the stool, it appeared to be more dark brown than black in coloration. Currently, she denies any nausea, vomiting, fevers, chills, hematemesis, or hematochezia. She does have some mild abdominal discomfort, but otherwise doing well. OBJECTIVE: VITAL SIGNS: Temperature 97.4, pulse 69, blood pressure 113/63, respiratory rate 18, saturating 96% on room air. GENERAL: The patient was sitting in a chair at bedside, in no acute distress. Alert and oriented x4. CARDIOVASCULAR: Regular rate and rhythm. RESPIRATORY: Clear to auscultation bilaterally. ABDOMEN: Normoactive bowel sounds. Soft, nondistended. Mild tenderness to palpation in the midepigastric region. EXTREMITIES: No cyanosis, clubbing, or edema. LABORATORY DATA: CBC with a white blood cell count of 6.1, hemoglobin 12.6, hematocrit 39.7, platelets 203. Chemistry with a sodium of 145, potassium 3.4, chloride 111, CO2 of 22, BUN 15, creatinine 1.11, glucose 147. AST 128, ALT 240, alkaline phosphatase 210, total bilirubin 1.5. IMAGING DATA: The patient underwent ERCP on October 30, 2020, which showed significant dilation of the common hepatic in addition to non filling of contrast in the distal common bile duct. Sphincterotomy was performed with a biliary balloon introduced into the common hepatic/common bile duct obtaining multiple yellow colored pigmented stones in addition to a significant amount of stone debris and sludge. There was some bleeding noted during the procedure itself, but it has stopped spontaneously without further significant blood loss. ASSESSMENT AND PLAN: The patient is a 74-year-old female with past medical history of hypertension, osteoarthritis/degenerative joint disease, presenting with choledocholithiasis. Choledocholithiasis. The patient initially presented with acute onset of nausea, vomiting, lower back pain, and mild abdominal discomfort with elevated LFTs in an obstructive-type pattern and CT scan showing debris in the distal common bile duct. Subsequently, she underwent ERCP on October 30, 2020, which showed a significant amount of stone debris in addition to three larger yellow pigmented stones that were ultimately retrieved via biliary balloon. In the postoperative period, the patient does not exhibit any symptoms of post ERCP pancreatitis and has had downtrending of her LFTs since the procedure, indicating response to treatment. She did have one episode of a darker brown colored stool earlier today, which may be due to some of the bleeding observed during the procedure yesterday, but given the picture of a brownish colored stool, it is unlikely to be a significant amount of blood loss. RECOMMENDATIONS: 1. While the patient is still inpatient, I would continue to trend her H and H. 2. Continue to monitor clinically for signs of active GI bleeding. 3. Continue to monitor for signs of post ERCP pancreatitis. 4. No antibiotics are indicated at this time. Given the improvement in the patient's clinical status and downtrending of her LFTs, she could be potentially discharged to home with outpatient followup in the GI Clinic. We will sign off at this time. Please call with any questions. Job ID: [id number]
[2020-10-31 21:33] LABS: Hemoglobin 12.3 g/dL (12.0-16.0)
[2020-11-01] MEDS: Sodium Chloride 0.9% 1,000 ML IV SCH (03:53)
[2020-11-01] MEDS: Piperacillin/Tazobactam 3.375 GM in Sodium Chloride 0.9% 100 ML IVPB SCH (03:53)
[2020-11-01 05:37] LABS: #Eosinphils 0.6 thou/uL (0.0-0.7); #Lymphocytes 1.3 thou/uL (1.20-3.40); #Monocytes 0.5 thou/uL (0.11-0.59); #Neutrophils 3.4 thou/uL (1.40-6.50); %Basophils 0.3 % (0.0-1.0); %Lymphocytes 22.2 % (21.0-51.0); %Monocytes 8.9 % (0.0-10.0); %Neutrophils 58.6 % (42.0-75.0); Hemoglobin 12.5 g/dL (12.0-16.0); Mean Corpuscular HGB CONC 31.4 g/dL (32.0-36.0); Mean Corpuscular Hemoglobin 28.3 pg (27.0-31.0); Mean Platelet Volume 10.4 fL (7.4-10.4); Platelet Count 190 thou/uL (130-400); Red Blood Cell (RBC) Count 4.41 mill/uL (4.20-5.40); White Blood Cell (WBC) Count 5.7 thou/uL (4.8-10.8)
[2020-11-01 05:58] LABS: ALT (SGPT) 194 U/L (8-55); AST (SGOT) 86 U/L (5-34); Albumin 2.8 g/dL (3.4-4.8); Alkaline Phosphatase 187 U/L (40-110); Anion Gap 14 mmol/L (10-20); BUN (Urea Nitrogen) 9 mg/dL (9.8-20.1); Bilirubin, Total 1.2 mg/dL (0.2-1.2); Calc. Creatinine Clearance 89 mL/min (70-130); Carbon Dioxide 22 mmol/L (23-31); Chloride 112 mmol/L (98-107); Globulin 2.9 g/dL (2.4-3.5); Glucose 90 mg/dL (83-110); Potassium 3.7 mmol/L (3.5-5.1); Protein, Total 5.7 g/dL (6.0-8.3); Sodium 144 mmol/L (136-145)
[2020-11-01 07:56] VITALS: BP 153/74; TEMP 98.2
[2020-11-01] MEDS: Amlodipine 10 MG TAB PO SCH (08:03)
[2020-11-01] MEDS ORDERED: Ciprofloxacin 500 MG TAB PO SCH (20:00)
--- NOTE | 2020-11-02 10:22 | DIS ---
DATE OF ADMISSION: 10/29/2020 DATE OF DISCHARGE: 11/01/2020 DISPOSITION: Discharge to home. PRIMARY DISCHARGE DIAGNOSES: Choledocholithiasis with obstructive jaundice, intractable nausea and vomiting, status post ERCP with sphincterotomy and removal of biliary calculi done by Dr. Tushar Montejo on 10/30/2020. Abdominal and pelvic CAT scan done on 10/29/2020, this was with IV contrast, showed prominent intrahepatic and extrahepatic biliary ductal dilatation with sludge and small stones seen involving the distal common bile duct near the ampulla. There is mild dilatation of the main pancreatic duct. No overt CT evidence to suggest acute pancreatitis, history of cholecystectomy, colonic diverticulosis was seen. Right upper quadrant ultrasound done on 10/29/2020, this exam was limited due to the patient's body habitus and overlying bowel gas. There are findings of cholecystectomy, intrahepatic biliary ductal dilatation, common bile duct was grossly dilated, which could not be seen well on current ultrasound. Urine culture grew E coli, 75 to 100,000 colony-forming units per mL, resistant to ampicillin, cefoxitin, and Macrobid, but sensitive to all other antibiotics. H and H 12 and 39; platelet count 190, white count of 5.7, MCV 90, had a total bilirubin of 4.8 on the day of admission with discharge numbers of 1.2. AST 334 on admission with discharge numbers of 86, ALT 356 on admission with discharge numbers of 194, alkaline phosphatase 364 on admission with discharge numbers of 187. Albumin is 2.8. Lipase 28. BUN is 9, creatinine 0.8. COVID-19 PCR was not detected. Acute hepatitis panel was negative. INPATIENT CONSULT: Dr. Tushar Montejo for Gastroenterology. DISCHARGE PLAN: The patient to follow up with primary care physician in one week. BRIEF COURSE DURING HOSPITALIZATION: The patient initially came in on the 29 of October with complaints of intractable nausea and vomiting for almost a week. Initial workup in the ER revealed possible choledocholithiasis with elevated LFTs. She has had consultation with Dr. Tushar Montejo. The patient has had prior history of cholecystectomy. She has had a successful ERCP with sphincterotomy and removal of biliary calculi. Post ERCP procedure, the patient has had her LFTs slowly trending down to baseline. The patient is ambulating and eating well prior to discharge. She is advised to eat low-fat diet. She needs to follow up with her primary care physician in one week. Please note, I have seen and examined the patient on the day of discharge. Job ID: [id number]
== END 2020-11-01 12:30 | disposition home or self-care (01) | DRG 445 ==
LOC: ERS 10:49 → T4-B 19:09
PROVIDERS: ADMIT Internal Medicine; ATTEND Internal Medicine
PROC: 0FC98ZZ Extirpation of Matter from Common Bile Duct, Via Natural or Artificial Opening Endoscopic (ICD-10-PCS; principal; 2020-10-30)
PROC: BF101ZZ Fluoroscopy of Bile Ducts using Low Osmolar Contrast (ICD-10-PCS; 2020-10-30)
DX: K80.51 Calculus of bile duct without cholangitis or cholecystitis with obstruction (principal); N39.0 Urinary tract infection, site not specified; Z16.11 Resistance to penicillins; Z16.29 Resistance to other single specified antibiotic; B96.20 Unspecified Escherichia coli [E. coli] as the cause of diseases classified elsewhere; Z20.828 Contact with and (suspected) exposure to other viral communicable diseases; M19.90 Unspecified osteoarthritis, unspecified site; Z96.643 Presence of artificial hip joint, bilateral; E66.9 Obesity, unspecified; I10 Essential (primary) hypertension; Z68.36 Body mass index [BMI] 36.0-36.9, adult; Z90.49 Acquired absence of other specified parts of digestive tract; Z82.49 Family history of ischemic heart disease and other diseases of the circulatory system; Z90.710 Acquired absence of both cervix and uterus; Z90.721 Acquired absence of ovaries, unilateral
CPT/HCPCS: 36415; 74177; 74330; 76705; 80053; 80074; 81001; 82248; 83605; 83690; 85025; 87077; 87086; 87186; 87635; 93005; 96365; 96375; C9113; J0696; J1100; J1610; J1885; J2405; J2543; J2550; J2704; J3010; J3490; Q9967; U0003